=== PATIENT | male | born 1970 | race Caucasian/White ===

== ENCOUNTER → 2023-06-18 09:59 | Outpatient (REF) | payer OTHER, SELFPAY | LOC: RAD 09:59 | PROVIDERS: ATTENDING PHYSICIAN Specialist; FAMILY PHYSICIAN Internal Medicine | DX: M25.50 Pain in unspecified joint (principal); K57.90 Diverticulosis of intestine, part unspecified, without perforation or abscess without bleeding; N20.0 Calculus of kidney; R31.0 Gross hematuria; K56.600 Partial intestinal obstruction, unspecified as to cause | CPT/HCPCS: 70030; 73130 ==

== ENCOUNTER → 2023-06-18 10:33 | Outpatient (REF) | payer OTHER, SELFPAY | LOC: MRI 3T 10:33 | PROVIDERS: ATTENDING PHYSICIAN Physician Assistant; FAMILY PHYSICIAN Internal Medicine | DX: K56.600 Partial intestinal obstruction, unspecified as to cause (principal) | CPT/HCPCS: 70030; 72197; 73130; 74183; A9575 ==

== ENCOUNTER → 2024-01-14 06:16 | Day surgery (SDC) | payer OTHER, SELFPAY | LOC: GI 06:16 | PROVIDERS: ATTENDING PHYSICIAN Specialist | DX: R19.4 Change in bowel habit (principal); R93.3 Abnormal findings on diagnostic imaging of other parts of digestive tract; K57.30 Diverticulosis of large intestine without perforation or abscess without bleeding | CPT/HCPCS: 45380; 88305 ==